=== PATIENT | female | born 1965 | race Hispanic/Latino ===

== ENCOUNTER → 2016-10-27 | Outpatient (CLI) | payer OTHER ==
--- NOTE | 2016-10-27 16:25 | MAM ---
EXAM DESCRIPTION: 3D Screening BILATERAL CLINICAL HISTORY: 51 yearsFemaleSCREENING. No complaints. No family history breast cancer. Premenopausal.. COMPARISON: Baseline study at this facility.. No prior reports available. TECHNIQUE: Bilateral CC and MLO projection full-field images, 3-D tomosynthesis digital mammographic technique. Also bilateral synthesized CC/ MLO full-field images. CAD not utilized. FINDINGS: The breast parenchymal density pattern is: Heterogeneously dense breast tissue, which may obscure small masses. No skin thickening or nipple retraction No focal, stellate mass or density, focal asymmetry , and no suspicious microcalcifications bilaterally. IMPRESSION: BI-RADS CATEGORY: 1 - NEGATIVE FOLLOW UP: Routine digital bilateral screening, one year interval from October 2016. Written communication explaining the findings and follow-up, will be mailed to the patient and referring health care provider. According to the [employer], yearly mammograms are recommended starting at age 40 and continuing as long as a woman is in good health. Any breast change noted on a breast self-exam should be reported promptly to the patient's healthcare provider. Breast MRI is recommended for women with an approximately 20-25% or greater lifetime risk of breast cancer, including women with a strong family history of breast or ovarian cancer and women who have been treated for Hodgkin's disease. A negative mammographic report should not delay tissue diagnosis in patients with significant clinical history or physical findings. Extremely dense breast tissue limits the sensitivity of digital mammography. Electronically signed by: Nolberto Wilburn MD 10/27/2016 4:24 PM CDT
== END | disposition home or self-care (01) ==
LOC: MAMMO 16:59
PROVIDERS: ATTEND Family Medicine
DX: Z12.31 Encounter for screening mammogram for malignant neoplasm of breast (principal)
CPT/HCPCS: 77063; G0202

== ENCOUNTER 2018-03-02 16:59 | Observation (INO) | payer SELFPAY ==
[2018-03-02] MEDS ORDERED: NITROGLYCERIN 0.4 MG 25 EA TAB SL ONE ×2 (17:33→17:37)
[2018-03-02] MEDS ORDERED: ASPIRIN TABLET 325 MG TAB ONE (17:33)
[2018-03-02] MEDS ORDERED: ASPIRIN (CHEWABLE) 81 MG TAB PO ONE (17:37)
--- NOTE | 2018-03-02 17:50 | ED.PDOC ---
History of Present Illness - General Chief Complaint: Chest Pain/NE Stated Complaint: chest discomfort Time Seen by Provider: 03/02/18 17:24 Source: patient, family Exam Limitations: no limitations - History of Present Illness Initial Comments: PT HAS HAD INTERMITTENT CP FOR PAST 6 MONTHS. PAST 2 DAYS HAS BEEN MUCH WORSE THAN PREVIOUS. Timing/Duration: other - CURRENTLY 5-6 HOURSE Severity/Quality: moderate, other - 7/10 Location: substernal Chest Pain Radiation: neck, other - R JAW Activities at Onset: none Prior Chest Pain/Cardiac Workup: no prior chest pain, no prior cardiac workup Improving Factors: other - RELIEVED BY LAYING DOWN AND MOTRIN LAST PM BUT REOCCURED THIS AM Worsening Factors: nothing Nitro Today/Relief: no nitro taken today Aspirin Treatment Today: no aspirin today Allergies/Adverse Reactions: Allergies NO KNOWN ALLERGY Allergy (Verified 03/02/18 17:29) Home Medications: Ambulatory Orders NK 03/02/18 Review of Systems - Review of Systems Constitutional: Denies: chills, fever EENTM: States: no symptoms reported Respiratory: States: short of breath. Denies: cough, wheezing Cardiology: States: chest pain. Denies: palpitations, syncope Gastrointestinal/Abdominal: States: nausea. Denies: abdominal pain, vomiting Genitourinary: States: no symptoms reported Musculoskeletal: States: no symptoms reported Skin: States: other - NO DIAPHORESIS Neurological: States: no symptoms reported Endocrine: States: no symptoms reported Hematologic/Lymphatic: States: no symptoms reported Past Medical History (General) - Patient Medical History Hx Stroke: No Hx Congestive Heart Failure: No Hx Diabetes: No Surgical History: appendectomy - Vaccination History Hx Influenza Vaccination: No Hx Pneumococcal Vaccination: No - Social History Hx Tobacco Use: No Hx Alcohol Use: No - Female History Patient is a Female of Child Bearing Age (10 -59 yrs old): Yes Patient : No Family Medical History - Family History Mother Family History: No Known Hx Cardiac Disease: Yes - FATHER Physical Exam - Physical Exam General Appearance: Alert, No apparent distress Eyes, Ears, Nose, Throat Exam: PERRL/EOMI, normal ENT inspection Neck: non-tender, full range of motion, supple Respiratory: lungs clear, normal breath sounds Cardiovascular/Chest: regular rate, rhythm, no murmur Gastrointestinal/Abdominal: normal bowel sounds, non tender, soft, no organomegaly Extremity: normal range of motion, non-tender, normal inspection Neurologic: alert, normal mood/affect Skin Exam: normal color, warm/dry Lymphatic: no adenopathy Progress - Progress Progress: 03/02/18 19:30 CURRENTLY PAIN FREE. 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 - EKG/XRAY/CT EKG: Sinus - RATE 66, NL AXIS, NL INTERVALS, , RBBB, nonspecific ST T wave Chg - NAIP, NO OLD FOR COMPARISON XRAY: chest - FRED Departure - Departure Clinical Impression: Elevated blood pressure reading Chest pain Qualifiers: Chest pain type: precordial pain Qualified Code(s): R07.2 - Precordial pain Time of Disposition: 19:32 Disposition: Discharge to Home or Self Care Condition: Good Departure Forms: ED Discharge - Pt. Copy, Patient Portal Self Enrollment Instructions: DI for Chest Pain Referrals: Louis Paulson MD [Primary Care Provider] - 1-2 Weeks Home Medications: Ambulatory Orders NK 03/02/18 Decision To Admit - Decistion To Admit Decision to Admit Reason: Admit from ER Decision to Admit Date: 03/02/18 Decision to Admit Time: 19:15
--- NOTE | 2018-03-02 17:59 | RAD ---
EXAM DESCRIPTION: Chest,1 View CLINICAL HISTORY: 52 years Female CP COMPARISON: None. FINDINGS: Poor depth of inspiration. Cardiac size appears within normal limits for film technique. Some increased density in the left lung base laterally which may reflect developing infiltrate or atelectasis. Right lung appears clear. No pneumothorax. 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
[2018-03-02] MEDS ORDERED: ACETAMINOPHEN 325 MG TAB PO PRN (22:41)
[2018-03-02] MEDS ORDERED: MORPHINE SULFATE INJ 10 MG/ML VIAL IV PRN (22:41)
[2018-03-02] MEDS ORDERED: NITROGLYCERIN 0.4 MG 25 EA TAB SL PRN (22:41)
[2018-03-02] MEDS ORDERED: SODIUM CHLORIDE 0.9% (FLUSH) 10 ML SYG IV PRN (22:41)
[2018-03-02] MEDS ORDERED: ENOXAPARIN SODIUM 40 MG/0.4 ML SYG SUBCU SCH (22:45)
[2018-03-02] MEDS ORDERED: ALPRAZolam 0.25 MG TAB PO PRN (22:54)
[2018-03-02] MEDS ORDERED: OMEPRAZOLE CAP 20 MG CAP ONE (22:58)
[2018-03-02] MEDS ORDERED: IV SET AND CAP CHANGE INJ INJ SCH (23:00)
[2018-03-03] MEDS ORDERED: PANTOPRAZOLE SODIUM TAB 40 MG PO SCH (06:30)
[2018-03-03] MEDS ORDERED: SODIUM CHLORIDE 0.9% (FLUSH) 10 ML SYG IV SCH (09:00)
[2018-03-03] MEDS ORDERED: ASPIRIN TABLET 325 MG TAB PO SCH (09:00)
[2018-03-03] MEDS ORDERED: KETOROLAC TROMETHAMINE INJ 30 MG/ML VIAL IV SCH (11:30)
[2018-03-03 13:54] VITALS: BP 112/68; TEMP 98.6; O2SAT 99
--- NOTE | 2018-03-03 14:34 | SSS ---
SUPERVISING PHYSICIAN: Ras Funk MD DISCHARGE DIAGNOSIS: 1. Chest pain, rule out myocardial infarction with negative serial cardiac enzymes. 2. Musculoskeletal chest wall pain. Pain was relieved with nonsteroidal anti- inflammatories. 3. Gastroesophageal reflux disease. HISTORY OF PRESENT ILLNESS: This is a 52-year-old female patient who presented to the Emergency Room with chest pain. It was midsternal and radiated to her bilateral neck as well as the back. It has been going on for approximately 6 months, but the 2 days prior to her admission, it was much worse. There was no shortness of breath, no diaphoresis, no nausea, no vomiting. She said in the beginning it was mild but has worsened to the point that yesterday she felt she had to come to the Emergency Room. The pain is also constant and the only thing that relieves it is lying down. She did take some Motrin on the previous evening, but was not sure if it helped or not because she fell asleep. In the Emergency Room, her vital signs showed temperature 97.8, heart rate 67, blood pressure 167/92, respiratory rate 20, O2 saturation 98%. Laboratory showed a basically within normal limits CBC. Sodium 138, potassium slightly low at 3.4 with chloride 103, carbon dioxide 28. Her liver enzymes were within normal limits. She had two troponins that were less than 0.02. I was called for hospital admission. The patient was placed in observation in the hospital. HOSPITAL COURSE: She had no further complaints of her previous symptoms of chest pain. She did have some musculoskeletal pain and she received some Toradol that did relieve some of the pain. It was at times difficult to obtain a true assessment of her symptoms due to language barrier. She is [id number]. Her serial cardiac enzymes were negative overnight. Her LDL was slightly high at 137.8, HDL 49, triglycerides 69. CBC was again within normal limits. At this point, she will be discharged in stable condition. PAST MEDICAL HISTORY: None. PAST SURGICAL HISTORY: 1. Appendectomy approximately 20 years ago. OUTPATIENT MEDICATIONS: None. ALLERGIES: NO KNOWN DRUG ALLERGIES. SOCIAL HISTORY: She denies any tobacco or illicit drug use. She does drink alcohol on a social basis. REVIEW OF SYSTEMS: As per history of present illness. PHYSICAL EXAMINATION: VITAL SIGNS: Temperature 98.6. Heart rate 56. Blood pressure 112/68. Respiratory rate 16. O2 saturation 99% on room air. GENERAL: This is a 52-year-old female patient lying in her hospital bed. She is in no acute distress. HEENT: Normocephalic, atraumatic. Pupils are equal and reactive. Oropharynx is clear. NECK: Supple without mass. RESPIRATORY: Essentially clear to auscultation bilaterally. CHEST: There is equal rise and fall of the chest with inspiration and expiration. CARDIOVASCULAR: Regular rate and rhythm. GASTROINTESTINAL: Abdomen is soft, nondistended, nontender. Bowel sounds are positive. EXTREMITIES: No cyanosis, clubbing or edema. NEUROLOGIC: Awake, alert and oriented times three. LABORATORY: Labs are as per history of present illness. Her chest x-ray shows question small amount of developing infiltrate in the left lung base versus atelectasis. All other labs and films have been reviewed via the EMR. DISCHARGE PLAN: The patient will be discharged home in stable condition. She is to return to the hospital for any further complaints of chest pain. She has a followup appointment with Belia Bhardwaj on 03/10/18 at 3:50 PM. She has no home medications. She will be discharged on nitroglycerin tabs, Protonix and 600 mg Advil. It is recommended she have a cardiac workup as well as she may need a GI workup. She is to increase her activity as tolerated, resume her previous diet and followup with her primary care physician as instructed. DISCHARGE MEDICATIONS: 1. Nitroglycerin. 2. Ibuprofen. 3. Pantoprazole. #[id number] MTDD
== END 2018-03-03 13:50 | disposition home or self-care (01) ==
LOC: ER 16:59 → MS 21:03
PROVIDERS: ADMIT Nurse Practitioner Acute Care; ATTEND Nurse Practitioner Acute Care
DX: R07.89 Other chest pain (principal); K21.9 Gastro-esophageal reflux disease without esophagitis; R03.0 Elevated blood-pressure reading, without diagnosis of hypertension; E87.6 Hypokalemia; I45.10 Unspecified right bundle-branch block
CPT/HCPCS: 96374; 96372; J1885; J1650; 82553 ×2; 80053 ×2; 80061; 36415 ×4; 85025 ×2; 82550 ×2; 83735; 84484 ×4; 83880; 71045; 94760 ×2; 99284; 93005 ×3; G0378

== ENCOUNTER → 2019-06-09 | Outpatient (CLI) | payer OTHER ==
--- NOTE | 2019-06-09 13:45 | US ---
Study: Right lower extremity venous Doppler sonogram. Indication: VARICOSE VEINS OF LOWER EXT WITH INFLAMMATION Technical: Multiplanar grayscale and Doppler sonographic images of the deep veins of the right lower extremity obtained. Findings: No deep venous thrombosis identified by ultrasound. The deep veins of the right lower extremity compress normally and have appropriate duplex waveforms. Normal flow augmentation is noted as well. The distal right superficial femoral vein is dilated up to 12 mm in diameter indicating varicosity. Impression: No deep venous thrombosis of the right lower extremity identified by ultrasound. The distal right superficial femoral vein is dilated up to 12 mm in diameter indicating varicosity. Electronically signed by: Jonathan Duckworth MD 06/09/2019 1:44 PM CDT
== END ==
LOC: US 12:45
PROVIDERS: ATTEND Nurse Practitioner Family
DX: I83.11 Varicose veins of right lower extremity with inflammation (principal)

== ENCOUNTER → 2020-01-16 | Outpatient (CLI) | payer OTHER | LOC: YCFC.O 11:27 | PROVIDERS: ATTEND Family Medicine | DX: Z11.59 Encounter for screening for other viral diseases (principal); R53.83 Other fatigue; R53.81 Other malaise ==